=== PATIENT | female | born 1975 | race Hispanic/Latino ===

== ENCOUNTER → 2022-02-28 | Outpatient (CLI) | payer OTHER ==
[~2022-02-28] MED LIST: ALPR-410 PO; CLON1TAB12 PO; LISI10TA24 PO; METF-444 PO; SERT-438 PO; TOPI25TA48 PO; ZOLM2.5T6 PO
== END | disposition home or self-care (01) ==
LOC: RAH 12:12
PROVIDERS: ATTEND Internal Medicine
DX: E04.2 Nontoxic multinodular goiter (principal)
CPT/HCPCS: 76536

== ENCOUNTER 2024-08-25 20:05 | Emergency (ER) | payer BC, OTHER ==
[~2024-08-25] VITALS: Ht 167.6 cm; Wt 86.6 kg
[~2024-08-25 20:05] MED LIST changes: +TOPI-257 PO; -TOPI25TA48 PO
[2024-08-25 20:42] LABS: BASOPHILS # (AUTO) 0.02 K/uL (0.00-0.20); BASOPHILS % (AUTO) 0.7 % (0.0-5.0); EOSINOPHILS # (AUTO) 0.03 K/uL (0.00-0.70); EOSINOPHILS % (AUTO) 1.1 % (0.0-8.0); HEMATOCRIT 35.2 % (36-48); LYMPHOCYTES # (AUTO) 1.3 K/uL (1.0-4.8); LYMPHOCYTES % (AUTO) 46.3 % (21.0-51.0); MEAN CORPUSCULAR HEMOGLOBIN 29.8 pg (27.0-33.0); MEAN CORPUSCULAR VOLUME 90.5 fL (79-99); MONOCYTES # (AUTO) 0.2 K/uL (0.1-1.0); MONOCYTES % (AUTO) 7.8 % (3.0-13.0); NEUTROPHILS # (AUTO) 1.2 K/uL (1.8-7.7); NEUTROPHILS % (AUTO) 44.1 % (40.0-77.0); PLATELET COUNT (AUTO) 82 K/uL (130-400); RED BLOOD CELL COUNT(AUTO) 3.89 MIL/uL (4.00-5.50); RED CELL DISTRIBUTION WIDTH 14.8 % (11.0-15.5); WHITE BLOOD COUNT (AUTO) 2.7 K/uL (4.8-10.8)
[2024-08-25 20:50] LABS: CREATININE 0.7 mg/dL (0.5-1.0); POTASSIUM 3.6 mmol/L (3.5-5.1)
[2024-08-25 20:53] LABS: APPEARANCE,URINE CLEAR (CLEAR); BILIRUBIN,URINE NEGATIVE (NEGATIVE); COLOR,URINE COLORLESS (YELLOW); GLUCOSE, URINE (UA) NEGATIVE (NEGATIVE); KETONES,URINE NEGATIVE (NEGATIVE); LEUKOCYTE ESTERASE ,URINE NEGATIVE Leu/uL (NEGATIVE); NITRATE,URINE NEGATIVE (NEGATIVE); OCCULT BLOOD,URINE NEGATIVE (NEGATIVE); PH,URINE 5.5 (5.0-8.0); PROTEIN,URINE NEGATIVE (NEGATIVE); UROBILINOGEN,URINE 0.2 mg/dL (0.2-1.0)
[2024-08-25 21:02] LABS: ADD UA MICROSCOPIC NO
[2024-08-25 21:22] LABS: BAND NEUTROPHILS % (MANUAL) 2 % (0-2); BASOPHILS % (MANUAL) 4 % (0-2); EOSINOPHILS % (MANUAL) 1 % (1-6); LYMPHOCYTES % (MANUAL) 58 % (22-44); MAN.DIFF COMMENT-IMPRESSION MANUAL DIFFERENTIAL; MONOCYTES % (MANUAL) 6 % (2-9); PLATELET MORPHOLOGY COMMENT DECREASED; SEGMENTED NEUTROPHILS % 29 % (40-70); TOTAL CELLS COUNTED 100; WBC MORPHOLOGY CONSISTENT W/DIFF
[2024-08-25] MEDS: leveTIRACEtam 500 MG/5 ML SD VIAL IV ONE (21:38)
--- NOTE | 2024-08-25 21:42 | ERN ---
ED Note History of Present Illness Stated Complaint: 7 SEIZURES TODAY Chief Complaint: Seizure Time Seen by MD: 21:16 Time Seen by Midlevel: 21:16 Dictation: The patient is a 49-year-old female with a history of seizures on Keppra, hypertension, diabetes, anxiety, PTSD who presents to the emergency department with complaints of seizures. Patient reports of total of seven seizures today. Reports ranging from 45 seconds to 2 minutes. Patient reports last seizure was around 2:30 p.m. patient reports she was taken by EMS to [facility] but was sent home without any treatment. Patient reports that around 131 of the seizure caused her to collapse with the floor and hit the left side of her head. Denies any nausea or vomiting. Denies any use of blood thinners. Denies any other injuries. Denies any fevers or recent illness. Allergies: Coded Allergies: Amoxicillin (Verified Allergy, Unknown, 01/17/14) Home Meds Reported Medications Sertraline HCl (Sertraline HCl) 25 Mg Tablet, 1.5 TAB PO AM, TAB 01/18/14 Alprazolam (Alprazolam) 0.5 Mg Tab.rapdis, 0.5 MG PO TID PRN for ANXIETY/AGITATION, TAB 01/18/14 Clonazepam (Clonazepam) 1 Mg Tablet, 0.5-1 MG PO HS PRN for INSOMNIA/SLEEP, TAB 01/18/14 Topiramate (Topiramate) 25 Mg Tablet, 25 MG PO HS, TAB 01/18/14 Lisinopril (Lisinopril) 10 Mg Tablet, 10 MG PO DAILY, TAB 01/18/14 Zolmitriptan (Zomig) 2.5 Mg Tablet, 2.5 MG PO TID PRN for migraine, TAB 01/18/14 Metformin HCl (Metformin HCl) 500 Mg Tablet, 500 MG PO BIDLUNCHDINNER, TAB 01/17/14 Past Medical History Past Medical History: Anxiety, Diabetes-Type II, Hypertension, Seizure, Other Additional Past Medical Hx: HX OF PTSD, MAJOR DEPRESSIVE DISORDER, PANIC ATTACKS Surgical History: Hysterectomy History: Not Applicable RN Note Reviewed/Agreed w/PFSH: Yes Review of System Dictation Constitutional: Negative for fever,chills, and weight loss Eyes: Negative for injury, pain,redness, and discharge ENT: Negative for injury,pain or swelling Cardiovascular: Negative for chest pain, palpitations, and edema Respiratory: Negative for shortness of breath, cough, and wheezing, Abdomen/GI: Negative for abdominal pain, nausea, vomiting, diarrhea, and constipation Back: Negative for injury and pain : Negative for injury, bleeding and discharge MS/Extremity: Negative for injury and deformity Skin: Negative for rash, and discoloration Neuro: Negative for headache, weakness, numbness, tingling, positive for seizures Psych: Negative for suicide ideation, homicidal ideation, and hallucinations Initial Vital Sign VS Vital Signs Date Time Temp Pulse Resp B/P (MAP) Pulse Ox O2 Delivery O2 Flow Rate FiO2 08/25/24 20:12 97.7 93 20 143/108 98 Room Air 08/25/24 21:13 0 21 Physical Exam Dictation Vital Signs reviewed General Appearance: Alert, oriented x 3, no acute distress, well developed, nourished. Head and Face: non-traumatic. Eyes: PERRL, pink conjunctivas, eyelid no trauma, anterior chamber with arcus senilis. Ears: Pinnas intact and no signs of trauma or erythema ear canals clear and no discharge TM no erythema Nose: No discharge, no bleeding. Oropharynx: Mouth normal, tongue pink. pharynx clear,no erythema, tonsils no exudates, no abscesses noted, mucous membrane moist Neck: Supple, non-tender, no thyromegaly, no masses, no JVD, no bruits Breast:Deferred Chest:No tenderness, no crepitus, no paradoxical movement, no retractions Lungs:Clear, well-ventilated, symmetric, no rales, no wheezing, no rhonchi, no stridor, good breath sounds bilaterally Heart: Regular rate, regular rhythm, no murmur, no gallops Vascular: no peripheral edema, Abdomen: Soft, positive bowel sounds, nondistended, no guarding, nontender, no rebound, no masses no hepatomegaly, no splenomegaly, no Mahan's sign, no hernias. Rectal: Deferred Genital: Deferred Neurological: Normal speech, motor function intact, sensory function intact , upper extremities equal in strength, lower extremities equal in strength Musculoskeletal: Neck nontender, full range of motion, back nontender, full rang e of motion, Extremities: nontender, full range of motion Skin: Color pink, dry, no turgor, no rash, no lacerations, no abrasions, no contusions. Lymphatic: Deferred Results (Laboratory/Radiology) Laboratory/Radiology Laboratory Tests Test 08/25/24 20:36 08/25/24 20:38 White Blood Count 2.7 K/uL (4.8-10.8) L Red Blood Count 3.89 MIL/uL (4.00-5.50) L Hemoglobin 11.6 g/dL (12.0-16.0) L Hematocrit 35.2 % (36-48) L Mean Corpuscular Volume 90.5 fL (79-99) Mean Corpuscular Hemoglobin 29.8 pg (27.0-33.0) Mean Corpuscular Hemoglobin Concent 33.0 g/dL (32.0-36.0) Red Cell Distribution Width 14.8 % (11.0-15.5) Platelet Count 82 K/uL (130-400) L Mean Platelet Volume 12.6 fL (7.5-10.5) H Immature Granulocyte % (Auto) 0.0 % (0-1) Neutrophils (%) (Auto) 44.1 % (40.0-77.0) Lymphocytes (%) (Auto) 46.3 % (21.0-51.0) Monocytes (%) (Auto) 7.8 % (3.0-13.0) Eosinophils (%) (Auto) 1.1 % (0.0-8.0) Basophils (%) (Auto) 0.7 % (0.0-5.0) Neutrophils # (Auto) 1.2 K/uL (1.8-7.7) L Lymphocytes # (Auto) 1.3 K/uL (1.0-4.8) Monocytes # (Auto) 0.2 K/uL (0.1-1.0) Eosinophils # (Auto) 0.03 K/uL (0.00-0.70) Basophils # (Auto) 0.02 K/uL (0.00-0.20) Absolute Immature Granulocyte (auto 0.00 K/uL (0-1) Segmented Neutrophils % 29 % (40-70) L Band Neutrophils % 2 % (0-2) Lymphocytes % (Manual) 58 % (22-44) H Monocytes % (Manual) 6 % (2-9) Eosinophils % (Manual) 1 % (1-6) Basophils % (Manual) 4 % (0-2) H Nucleated Red Blood Cells 0.0 % (0.0-0.19) Differential Comment MANUAL DIFFERENTIAL White Cell Morphology Comment CONSISTENT W/DIFF Platelet Morphology Comment DECREASED Red Blood Cell Morphology See comments Sodium Level 142 mmol/L (136-145) Potassium Level 3.6 mmol/L (3.5-5.1) Chloride Level 108 mmol/L (101-111) Carbon Dioxide Level 26 mmol/L (21-32) Blood Urea Nitrogen 5 mg/dL (7-18) L Creatinine 0.7 mg/dL (0.5-1.0) Glomerular Filtration Rate Calc 105 mL/min (>90) Random Glucose 157 mg/dL (70-105) H Total Calcium 8.3 mg/dL (8.5-10.1) L Troponin I High Sensitivity 47 ng/L (4-50) Urine Color COLORLESS (YELLOW) Urine Appearance CLEAR (CLEAR) Urine pH 5.5 (5.0-8.0) Urine Specific [place] 1.005 (1.001-1.031) Urine Protein NEGATIVE mg/dL (NEGATIVE) Urine Glucose (UA) NEGATIVE mg/dL (NEGATIVE) Urine Ketones NEGATIVE mg/dL (NEGATIVE) Urine Occult Blood NEGATIVE (NEGATIVE) Urine Nitrate NEGATIVE (NEGATIVE) Urine Bilirubin NEGATIVE mg/dL (NEGATIVE) Urine Urobilinogen 0.2 mg/dL (0.2-1.0) Urine Leukocyte Esterase NEGATIVE Aidan/uL Urine Opiates Screen NEGATIVE (NEGATIVE) Urine Barbiturates Screen NEGATIVE (NEGATIVE) Urine Phencyclidine Screen NEGATIVE (NEGATIVE) Urine Amphetamines Screen NEGATIVE (NEGATIVE) Urine Benzodiazepines Screen NEGATIVE (NEGATIVE) Urine Cocaine Screen NEGATIVE (NEGATIVE) Urine Marijuana (THC) Screen NEGATIVE (NEGATIVE) Labs Reviewed?: Yes EKG: (+) rhythm (Sinus rhythm) EKG Comment: Date:08/25/2024 Time:2155 Ventricular rate:81 MS interval:177 QRS duration:73 QT/QTc:405 EKG interpretation: Sinus rhythm Reviewed by ED Attending no STEMI ED Course ED Course Orders Procedure Category Date Status Time Cbc With Differential LAB 08/25/24 Complete 20:26 Basic Metabolic Panel LAB 08/25/24 Complete 20:26 Urinalysis Profile LAB 08/25/24 Complete 20:26 Keppra LAB 08/25/24 In Process (Levetiracetam) Level 20:40 Manual Differential LAB 08/25/24 Complete 20:36 Ct Head/Brain W/O CT 08/25/24 Resulted Contrast 21:18 Levetiracetam 500 PHA 08/25/24 In Process Mg/5 Ml Sd V (Keppra 5 21:30 12 Lead Ekg Tracing- EKG 08/25/24 Logged Technical 21:27 Troponin I High LAB 08/25/24 Complete Sensitivity 21:27 Levetiracetam 500 PHA 08/25/24 Complete Mg/5 Ml Sd V (Keppra 5 21:36 Drug Screen Urine LAB 08/25/24 Complete 21:37 Current Medications Medications (Trade) Dose Ordered Sig/Magalis Route PRN Reason Start Time Stop Time Status Last Admin Dose Admin Levetiracetam (kepPRA 500 MG/5 ML SD VIAL) 500 mg STK-MED ONCE IV 08/25/24 21:36 08/25/24 21:36 DC Levetiracetam (kepPRA 500 MG/5 ML SD VIAL) 1,000 mg ONCE IV 08/25/24 21:30 09/24/24 21:29 08/25/24 22:12 Vital Signs Date Time Temp Pulse Resp B/P (MAP) Pulse Ox O2 Delivery O2 Flow Rate FiO2 08/25/24 22:22 98.4 84 20 140/94 97 Room Air* 0 21 08/25/24 21:13 98.4 88 18 147/92 98 Room Air* 0 21 08/25/24 20:12 97.7 93 20 143/108 98 Room Air Medical Decision Making MDM The patient is a 49-year-old female with a history of seizures on Keppra, hypertension, diabetes, anxiety, PTSD who presents to the emergency department w ith complaints of seizures. Patient reports of total of seven seizures today. Reports ranging from 45 seconds to 2 minutes. Patient reports last seizure was around 2:30 p.m. patient reports she was taken by EMS to [facility] but was sent home without any treatment. Patient reports that around 131 of the seizure caused her to collapse with the floor and hit the left side of her head. Denies any nausea or vomiting. Denies any use of blood thinners. Denies any other injuries. Denies any fevers or recent illness. CBC showed no leukocytosis, mild normocytic anemia, low platelets, chemistry showed no electrolyte imbalance, negative troponin, toxicology negative, urinalysis negative, CT head showed no acute pathology. Patient received IV Keppra in ER. Spoke to patient about labs and imaging results. Patient reports she feels better. It has been about 9 hours from last seizure. Patient agrees to be discharged and follow up with neurologist. Patient continues neurologically intact. Stable vital signs. Nontoxic appearance. Patient with steady gait. Differential diagnosis: Seizures, electrolyte imbalance, intracerebral hemorrhage Need for hospitalization: Patient does not meet criteria for hospitalization. There are no social concerns with this patient. DX & DISP Disposition: Discharge Departure Impression: Primary Impression: Seizures Condition: Stable Additional Instructions: Please follow up with your primary doctor in 1-2 days. If symptoms worsen please return to ER. Follow up with your neurologist as soon as possible. FOLLOW-UP WITH PRIMARY CARE PROVIDER IN 1 TO 2 DAYS. TAKE MEDICATIONS DIRECTED HERE IN THE EMERGENCY ROOM. OKAY TO CONTINUE HOME MEDICATIONS UNLESS OTHERWISE DISCUSSED DURING YOUR VISIT IN THE EMERGENCY ROOM TODAY. RETURN TO YOUR NEAREST EMERGENCY ROOM IF SYMPTOMS WORSEN OR IF THERE IS NO IMPROVEMENT. CALL 911 IF YOU NEED IMMEDIATE ASSISTANCE. TAKE TYLENOL OR MOTRIN XNTC-[id number]-[id number] NEEDED AND IF NO CONTRAINDICATIONS ARE PRESENT. INCREASE ORAL HYDRATION. A WOUND CULTURE OR URINE CULTURE WAS ORDERED HERE IN THE EMERGENCY ROOM DEPARTMENT PLEASE FOLLOW-UP WITH PRIMARY CARE PROVIDER AND ADVISE THEM TO GET REPEAT PORTS FROM OUR FACILITY. IF YOU HAD ANY NEFTALI WRAP/SPLINTS TH AT WERE APPLIED HERE, PLEASE DO NOT REMOVE THEM UNTIL YOU SEE YOUR PRIMARY CARE OR SPECIALTY. Referrals: GRACIA MCNULTY MD (PCP) Time of Disposition: 23:49 I have reviewed the case, and I agree with, Diagnosis and Plan BERNY GIBSON August 25, 2024 21:42
--- NOTE | 2024-08-25 21:48 | HMCIMG ---
Exam Type: CT HEAD/BRAIN W/O CONTRAST Clinical Information: S/P FALL Comparison: None CT Dose Index (CTDI): 57.33 mGy Dose Length Product (DLP): 956.79 total mGy-cm Findings: The examination is unremarkable. Torres-white matter junction is preserved. No intra or extra axial lesions or fluid collections are seen. Specifically, torres and white matter are normal in signal characteristics with normal caliber of ventricles and periventricular cisterns with no evidence of intra or or extra-axial hemorrhage, lacunar infarct, or major territorial infarct, mass, or other abnormality. There are no infarcts. There are no hemorrhages. Periventricular white matter locations are preserved. The orbital contents and structures of the posterior fossa are intact. Impression: Normal CT of the head. This study was performed using dose reduction techniques to include automated exposure control and/or adjustment of the mA and/or kV according to patient size.
[2024-08-25 21:55] LABS: AMPHET/METH SCREEN,URINE NEGATIVE (NEGATIVE); BARBITURATE SCREEN, URINE NEGATIVE (NEGATIVE); BENZODIAZEPINES SCREEN,URINE NEGATIVE (NEGATIVE); CANNABINOID SCREEN,URINE NEGATIVE (NEGATIVE); COCAINE SCREEN,URINE NEGATIVE (NEGATIVE); OPIATE SCREEN,URINE NEGATIVE (NEGATIVE); PHENCYCLIDINE SCREEN,URINE NEGATIVE (NEGATIVE)
[2024-08-25] MEDS: leveTIRACEtam 500 MG/5 ML SD VIAL IV SCH (22:12)
[2024-08-26 00:14] VITALS: BP 108/74; PULSE 84; RESP 18; TEMP 98.2; O2SAT 98
--- NOTE | 2024-08-26 08:17 | EKG ---
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
== END 2024-08-26 00:25 | disposition home or self-care (01) ==
LOC: EDH 20:05
DX: R56.9 Unspecified convulsions (principal); E11.9 Type 2 diabetes mellitus without complications; F41.9 Anxiety disorder, unspecified; F43.10 Post-traumatic stress disorder, unspecified; I10 Essential (primary) hypertension; Z79.899 Other long term (current) drug therapy; Z88.0 Allergy status to penicillin; Z90.710 Acquired absence of both cervix and uterus; X58.XXXA Exposure to other specified factors, initial encounter; Y93.89 Activity, other specified; Y92.89 Other specified places as the place of occurrence of the external cause; Y99.8 Other external cause status
CPT/HCPCS: 99284; 96374; 70450; 84484; 80048; 80305; 85025; 81003; 36415; 93005; 80177; J1953